=== PATIENT | male | born 1980 | race Two or more races ===

== ENCOUNTER 2020-06-11 01:03 | Emergency (ER) | payer OTHER ==
[~2020-06-11] VITALS: Ht 180.3 cm; Wt 94.8 kg
[2020-06-11] MEDS ORDERED: PEPCID AC20 MG PO ×2 (01:15→04:11)
[2020-06-11] MEDS ORDERED: ACID REDUCER20 M1 PO (01:16)
[2020-06-11] MEDS ORDERED: CARAFATE1 GM PO (04:11)
[2020-06-11] MEDS ORDERED: DICY20TA PO (04:11)
== END 2020-06-11 04:29 | disposition home or self-care (01) ==
LOC: ER 01:03
DX: K29.60 Other gastritis without bleeding (principal); R10.13 Epigastric pain; Z03.818 Encounter for observation for suspected exposure to other biological agents ruled out

== ENCOUNTER 2020-06-29 02:54 | Emergency (ER) | payer OTHER ==
[~2020-06-29] VITALS: Ht 180.3 cm; Wt 90.7 kg
[~2020-06-29 02:54] MED LIST: ACID REDUCER20 M1 PO; CARAFATE1 GM PO; DICY20TA PO; PEPCID AC20 MG PO
[2020-06-29] MEDS ORDERED: NASAL MIST126 ML (02:59)
[2020-06-29] MEDS ORDERED: ALBUTEROL0.63 MG/3 (02:59)
[2020-06-29] MEDS ORDERED: PROVENTIL HFA6.7 GM IH (05:19)
[2020-06-29] MEDS ORDERED: SINGULAIR 10MG10 MG PO (05:19)
[2020-06-29] MEDS ORDERED: ZYNCOF 20-400120 ML PO (05:19)
[2020-06-29] MEDS ORDERED: SYMBICORT 16010.2 GM IH (05:19)
== END 2020-06-29 05:30 ==
LOC: ER 02:54
DX: J45.998 Other asthma (principal); Z03.818 Encounter for observation for suspected exposure to other biological agents ruled out